=== PATIENT | female | born 1950 | race Caucasian/White ===

== ENCOUNTER → 2016-07-04 | Outpatient (CLI) | payer OTHER | DX: Z01.812 Encounter for preprocedural laboratory examination (principal); R91.8 Other nonspecific abnormal finding of lung field | CPT/HCPCS: 71020 ==

== ENCOUNTER → 2016-07-08 | Outpatient (CLI) | payer OTHER | LOC: SLEEP 21:30 | DX: G47.33 Obstructive sleep apnea (adult) (pediatric) (principal); E66.9 Obesity, unspecified | CPT/HCPCS: 95810 ==

== ENCOUNTER → 2016-07-11 | Outpatient (CLI) | payer OTHER | LOC: CT 07:59 | DX: R91.8 Other nonspecific abnormal finding of lung field (principal); K44.9 Diaphragmatic hernia without obstruction or gangrene | CPT/HCPCS: 71260; J7050; Q9962 ==

== ENCOUNTER → 2021-10-19 | Outpatient (CLI) | payer OTHER ==
[2021-10-19 09:21] LABS: BUN/CREATININE RATIO 18 (0-10)
[2021-10-21 17:12] LABS: CHOLESTEROL, TOTAL 191 mg/dL (100-199); HDL SIZE 8.6 nm (>=9.2); HDL-C 34 mg/dL (>39); HDL-P (TOTAL) 25.7 umol/L (>=30.5); LARGE HDL-P 2.2 umol/L (>=4.8); LARGE VLDL-P 14.1 nmol/L (<=2.7); LDL SIZE 19.9 nm (>20.5); LDL SIZE 19.9 nm (>=20.8); LDL-C 109 mg/dL (0-99); LDL-P 1651 nmol/L (<1000); LP-IR SCORE 87 (<=45); SMALL LDL-P 1186 nmol/L (<=527); TRIGLYCERIDES 278 mg/dL (0-149); VLDL SIZE 54.8 nm (<=46.6)
== END ==
LOC: LAB 08:17
PROVIDERS: Emergency Medicine
DX: M79.631 Pain in right forearm (principal); I87.8 Other specified disorders of veins; R74.01 Elevation of levels of liver transaminase levels; I10 Essential (primary) hypertension; E78.2 Mixed hyperlipidemia; K44.9 Diaphragmatic hernia without obstruction or gangrene
CPT/HCPCS: 36415; 71046; 80053; 80061; 83704; 85379

== ENCOUNTER → 2021-10-25 | Outpatient (CLI) | payer OTHER | LOC: KOH-I 09:26 | DX: M79.631 Pain in right forearm (principal); R74.01 Elevation of levels of liver transaminase levels; I87.8 Other specified disorders of veins | CPT/HCPCS: 76705; 93971 ==